=== PATIENT | female | born 1955 | race Hispanic/Latino ===

== ENCOUNTER 2017-10-09 05:44 | Day surgery (SDC) | payer OTHER ==
[2017-10-08 11:58] VITALS: BMI 32.3
--- NOTE | 2017-10-09 01:09 | HP ---
SHORT STAY HISTORY AND PHYSICAL DATE OF ADMISSION: 10/09/2017 HISTORY OF PRESENT ILLNESS: Ms. Giovanna Hodges is a very pleasant 62-year-old [place] female, who comes for an EGD because of abdominal pain. The patient had abdominal pain over the last several months. The pain is actually over the upper abdomen. The pain is sharp and usually lasts few minut es after meals. She has had empty stomach. She has mild nausea, but no vomiting. The patient will be tried omeprazole, but symptoms persist. The patient comes for an EGD because of the persist ent abdominal pain. ALLERGIES: None. SOCIAL HISTORY: The patient does not smoke or drink alcohol. MEDICAL ILLNESSES: 1. Hypertension. 2. Hyperlipidemia. 3. Right rotator cuff repair. 4. Cholecystectomy. 5. Colonoscopy in 2012. PHYSICAL EXAMINATION: VITAL SIGNS: Pulse is 70, blood pressure 130/80. HEENT: Conjunctivae clear. CARDIOVASCULAR SYSTEM AND LUNGS: Within normal limits. ABDOMEN: Soft to palpate. No organomegaly. Abdomen is tender over the epigastric area without rebo und or guarding. Bowel sounds are normal. ADMITTING DIAGNOSIS: Persistent abdominal pain, undergoing esophagogastroduodenoscopy.
--- NOTE | 2017-10-09 09:42 | OP ---
DATE OF PROCEDURE: 10/09/2017 SURGEON: Mckenna Sanchez M.D. OPERATIVE PROCEDURE: Esophagogastroduodenoscopy with biopsies. PREOPERATIVE DIAGNOSES: A 62-year-old female with abdominal pain that is persistent. She has been tried on Prevacid and also Prilosec. The patient is status post cholecystectomy many y ears ago. The patient is undergoing EGD because of abdominal pain. POSTOPERATIVE DIAGNOSES: 1. Mild mucosal friability at the GE junction, indicating mild esophagitis. 2. Normal stomach. 3. Duodenitis. PROCEDURE IN DETAIL: The patient was placed on her left lateral position and was given sedation by A nesthesia Department. A Pentax video gastroscope under direct vision was passed down the oropharynx, past the GE junction, into the stomach and subsequently the descending duodenum. The esophageal muc sugey appears normal. At the GE junction, mild mucosal friability noted. Retroflexion failed to show any lesion in the fundus and cardia of the stomach. The gastric body, gastric antrum, incisura angul josy, no pathology seen. The scope advanced into the duodenal bulb. This is an area of mucosal shereen a to moderate. The descending duodenum, no pathology seen. The scope withdrawn back to stomach. Bi opsy of the gastric antrum and gastric body. The stomach was decompressed and scope removed. DISCHARGE PLANNING: This is a 62-year-old female who came in for EGD for abdominal pa in. She does not respond to Prevacid and Prilosec. The EGD showed duodenitis. Otherwise, the exam is unremarkable. DISCHARGE RECOMMENDATIONS: 1. The patient to continue the Pepcid as before. 2. Await gastric biopsy and decide further plan of treatment.
[2017-10-09] MEDS ORDERED: Lidocaine 1% PF 5 ML VIAL ONE (19:54)
[2017-10-09] MEDS ORDERED: PROPOFOL 200 MG/20 ML VIAL ONE (19:54)
== END 2017-10-09 08:29 | disposition home or self-care (01) ==
LOC: SDC 05:44
PROVIDERS: ATTEND Internal Medicine Gastroenterology
PROC: 0DB68ZX Excision of Stomach, Via Natural or Artificial Opening Endoscopic, Diagnostic (ICD-10-PCS; principal; 2017-10-09)
DX: K29.50 Unspecified chronic gastritis without bleeding (principal); K29.80 Duodenitis without bleeding; K20.9 Esophagitis, unspecified; I10 Essential (primary) hypertension; E78.5 Hyperlipidemia, unspecified; Z91.048 Other nonmedicinal substance allergy status; Z91.010 Allergy to peanuts; Z98.890 Other specified postprocedural states
CPT/HCPCS: 88305; 88312; J2001; J2704

== ENCOUNTER 2018-06-28 13:36 | Outpatient (CLI) | payer OTHER | END 2018-06-28 13:37 | disposition home or self-care (01) | LOC: BICMAMMO 13:36 | PROVIDERS: ATTEND Nurse Practitioner Family | DX: Z12.31 Encounter for screening mammogram for malignant neoplasm of breast (principal); R92.1 Mammographic calcification found on diagnostic imaging of breast | CPT/HCPCS: 77063; 77067 ==

== ENCOUNTER 2018-07-28 13:16 | Emergency (ER) | payer OTHER ==
[2018-07-28] MEDS ORDERED: Lorazepam 2 MG/ML VIAL ONE (13:51)
[2018-07-28 14:24] LABS: Bilirubin Negative (Negative); Blood, Urine Negative (Negative); Clarity CLEAR (Clear); Glucose, Urine (Dipstick) Negative (Negative); Leukocyte Small (Negative); Nitrite Negative (Negative); Protein, Urine (Dipstick) Negative (Neg-Trace); Specific Gravity, Urine 1.003 (1.002-1.036); Urobilinogen 0.2 mg/dL (0.2-1.0); pH, Urine 7.5 (5.0-9.0)
--- NOTE | 2018-07-28 14:24 | RAD ---
PORTABLE UPRIGHT FRONTAL CHEST RADIOGRAPH: Date: 07/28/18 COMPARISON: None. HISTORY: Abnormal EKG, chest pain. FINDINGS: Mild increased linear interstitial density. Postsurgical anchor overlies the right humeral head. No p neumothorax, pleural fluid, focal consolidation, or alveolar edema. IMPRESSION: No acute findings. POS: [facility]
[2018-07-28 14:25] LABS: Bacteria/HPF None Seen HPF (None Seen); Hyaline Casts/LPF 0-3 HYALINE CAST LPF (0-3 Hyaline); RBC/HPF 0-3 HPF (0-3); Squamous Epithelial None Seen HPF (0-3); WBC/HPF 0-3 HPF (0-3)
[2018-07-28 14:33] LABS: #Basophils 0.1 thou/uL (0.0-0.2); #Eosinphils 0.1 thou/uL (0.0-0.7); #Lymphocytes 2.8 thou/uL (1.20-3.40); #Monocytes 0.5 thou/uL (0.11-0.59); #Neutrophils 4.1 thou/uL (1.40-6.50); %Basophils 0.7 % (0.0-1.0); %Eosinophils 1.2 % (0.0-10.0); %Lymphocytes 37.1 % (21.0-51.0); %Monocytes 6.9 % (0.0-10.0); %Neutrophils 54.1 % (42.0-75.0); Hemoglobin 14.2 g/dL (12.0-16.0); Mean Corpuscular HGB CONC 32.6 g/dL (32.0-36.0); Mean Corpuscular Hemoglobin 31.8 pg (27.0-31.0); Mean Corpuscular Volume 97.6 fL (78.0-98.0); Mean Platelet Volume 7.3 fL (7.4-10.4); Platelet Count 333 thou/uL (130-400); RBC Distribution Width 12.5 % (11.5-14.5); Red Blood Cell (RBC) Count 4.47 mill/uL (4.20-5.40); White Blood Cell (WBC) Count 7.5 thou/uL (4.8-10.8)
[2018-07-28 14:36] LABS: ALT (SGPT) 25 U/L (8-55); AST (SGOT) 24 U/L (5-34); Albumin 4.3 g/dL (3.4-4.8); Alkaline Phosphatase 85 U/L (40-150); Anion Gap 17 mmol/L (10-20); BUN (Urea Nitrogen) 13 mg/dL (9.8-20.1); Bilirubin, Total 0.3 mg/dL (0.2-1.2); Calc. Creatinine Clearance 0 mL/min (70-130); Calcium 10.1 mg/dL (7.8-10.44); Carbon Dioxide 24 mmol/L (23-31); Chloride 102 mmol/L (98-107); Estimated GFR-MDRD 79; Globulin 3.4 g/dL (2.4-3.5); Glucose 94 mg/dL (80-115); Potassium 4.6 mmol/L (3.5-5.1); Protein, Total 7.7 g/dL (6.0-8.3); Sodium 138 mmol/L (136-145)
== END 2018-07-28 17:15 | disposition home or self-care (01) ==
LOC: ERS 13:16
DX: R00.2 Palpitations (principal); I10 Essential (primary) hypertension; E78.00 Pure hypercholesterolemia, unspecified; Z79.82 Long term (current) use of aspirin; Z79.899 Other long term (current) drug therapy
CPT/HCPCS: 36415; 71045; 80053; 81003; 81015; 84484; 85025; 87086; 87804; 93005; 96374; J2060

== ENCOUNTER 2018-10-22 05:58 | Day surgery (SDC) | payer OTHER ==
[2018-10-21 11:22] VITALS: BMI 31.5
--- NOTE | 2018-10-22 09:23 | OP ---
DATE OF PROCEDURE: 10/22/2018 PROCEDURE PERFORMED: Colonoscopy. PREOPERATIVE DIAGNOSIS: Colon polyp. POSTOPERATIVE DIAGNOSES: 1. Hemorrhoids. 2. Occasional diverticular disease. DESCRIPTION OF PROCEDURE: The patient was placed on her left lateral position and was given sedation by Anesthesia Department. A rectal exam was performed before the scope was advanced into the rectum. No lesions felt on rectal exam. A Pentax videocolonoscope was introduced into the rectum and advanced all the way to the cecum. The prep was good. The mucosa appears normal throughout the colon. The appendiceal orifice, ileocecal wall, and cecum, no pathology seen. Withdrawal of scope in the cecum, the ascending colon, hepatic flexure, no pathology seen. The transverse colon, splenic flexure, no pathology seen. The descending colon, no pathology seen. The sigmoid colon showed occasional diverticula. Rectum showed hemorrhoids. DISCHARGE PLANNING: This is a 63-year-old female, who came for a colonoscopy because history of colon polyp. The colonoscopy showed no pathology. DISCHARGE RECOMMENDATIONS: 1. The patient advised to call me if she develops abdominal pain, hematochezia, or fever. 2. Repeat colonoscopy in 5 years. Job ID: [id number]
[2018-10-22] MEDS ORDERED: Lidocaine 1% PF 5 ML VIAL ONE (10:43)
[2018-10-22] MEDS ORDERED: PROPOFOL 200 MG/20 ML VIAL ONE (10:43)
--- NOTE | 2018-10-25 07:36 | HP ---
HISTORY OF PRESENT ILLNESS: This 63-year-old female comes in for a colonoscopy. She has history of colon polyp. The patient had a colonoscopy with polypectomy 5 years ago in [place]. The patient had 2 polyps removed. She was advised to undergo colonoscopy in 5 years. At the present time, Ms. Hodges has no specific GI symptoms. Her bowel movements are regular. No hematochezia. ALLERGIES: NO DRUG ALLERGIES, OTHERWISE ALLERGIC TO ALBUMIN, NUTS AND PEANUTS. MEDICAL ILLNESSES: 1. Chronic hypertension. 2. Hyperlipidemia. 3. Chronic acid reflux. 4. Colon polyp. PHYSICAL EXAMINATION: VITAL SIGNS: Pulse is 70, blood pressure 150/70. HEENT: Conjunctivae clear. CARDIOVASCULAR: Within normal limits. LUNGS: Within normal limits. ABDOMEN: Soft. No organomegaly. No tenderness. No masses. ADMITTING DIAGNOSIS: Colon polyp. PLAN: Repeat colonoscopy. Job ID: [id number]
== END 2018-10-22 09:10 | disposition home or self-care (01) ==
LOC: SDC 05:58
PROVIDERS: ATTEND Internal Medicine Gastroenterology
PROC: 0DJD8ZZ Inspection of Lower Intestinal Tract, Via Natural or Artificial Opening Endoscopic (ICD-10-PCS; principal; 2018-10-22)
DX: Z12.11 Encounter for screening for malignant neoplasm of colon (principal); K57.30 Diverticulosis of large intestine without perforation or abscess without bleeding; K64.9 Unspecified hemorrhoids; I10 Essential (primary) hypertension; E78.5 Hyperlipidemia, unspecified; K21.9 Gastro-esophageal reflux disease without esophagitis; Z86.010 Personal history of colon polyps; Z79.82 Long term (current) use of aspirin; Z79.899 Other long term (current) drug therapy; Z88.5 Allergy status to narcotic agent; Z91.010 Allergy to peanuts; Z91.018 Allergy to other foods; Z91.048 Other nonmedicinal substance allergy status
CPT/HCPCS: J2001; J2704

== ENCOUNTER 2020-02-14 07:42 | Outpatient (CLI) | payer OTHER ==
[2020-02-14 14:25] LABS: #Eosinphils 0.1 thou/uL (0.0-0.7); #Monocytes 0.5 thou/uL (0.11-0.59); #Neutrophils 4.1 thou/uL (1.40-6.50); %Basophils 0.1 % (0.0-1.0); %Eosinophils 1.4 % (0.0-10.0); %Lymphocytes 30.3 % (21.0-51.0); %Neutrophils 60.3 % (42.0-75.0); Hemoglobin 13.4 g/dL (12.0-16.0); Mean Corpuscular HGB CONC 32.9 g/dL (32.0-36.0); Mean Corpuscular Hemoglobin 32.1 pg (27.0-31.0); Mean Corpuscular Volume 97.4 fL (78.0-98.0); Mean Platelet Volume 8.5 fL (7.4-10.4); Platelet Count 268 thou/uL (130-400); RBC Distribution Width 11.9 % (11.5-14.5); Red Blood Cell (RBC) Count 4.17 mill/uL (4.20-5.40); White Blood Cell (WBC) Count 6.7 thou/uL (4.8-10.8)
[2020-02-14 18:05] LABS: SARS-CoV-2 MS2 Positive; SARS-CoV-2 N Gene Negative; SARS-CoV-2 S Gene Negative; SARS-CoV-2 by NAA Not Detected (NotDetected); SARS-CoV-2 orf1ab Negative
--- NOTE | 2020-02-15 20:52 | EKG ---
Test Reason : Blood Pressure : / mmHG Vent. Rate : 068 BPM Atrial Rate : 068 BPM P-R Int : 166 ms QRS Dur : 090 ms QT Int : 402 ms P-R-T Axes : 049 015 049 degrees QTc Int : 427 ms Normal sinus rhythm Low voltage QRS Borderline ECG No previous ECGs available Confirmed by Ashlie DINERO ([id number]) on 02/15/2020 8:52:08 PM Referred By: CHITRA Confirmed By:Ashlie DINERO
== END 2020-02-14 07:43 | disposition home or self-care (01) ==
LOC: LABBT 07:42
PROVIDERS: ATTEND Orthopaedic Surgery Hand Surgery
DX: Z01.818 Encounter for other preprocedural examination (principal); D36.10 Benign neoplasm of peripheral nerves and autonomic nervous system, unspecified; Z20.828 Contact with and (suspected) exposure to other viral communicable diseases
CPT/HCPCS: 85025; 87635; 93005; 93010; U0003

== ENCOUNTER 2020-08-15 11:00 | Outpatient (CLI) | payer OTHER | END 2020-08-15 11:01 | disposition home or self-care (01) | LOC: BICMAMMO 11:00 | PROVIDERS: ATTEND Nurse Practitioner Family | DX: Z12.31 Encounter for screening mammogram for malignant neoplasm of breast (principal) | CPT/HCPCS: 77067 ==

== ENCOUNTER 2020-08-28 10:58 | Outpatient (CLI) | payer MEDICARE | END 2020-08-28 10:59 | disposition home or self-care (01) | LOC: BICMAMMO 10:58 | PROVIDERS: ATTEND Nurse Practitioner Family | DX: M81.0 Age-related osteoporosis without current pathological fracture (principal); M85.88 Other specified disorders of bone density and structure, other site | CPT/HCPCS: 77080 ==